=== PATIENT | female | born 1965 | race Caucasian/White ===

== ENCOUNTER 2019-05-23 13:35 | Emergency (ER) | payer MEDICARE, MEDICAID ==
[~2019-05-23] VITALS: Ht 160 cm; Wt 125.0 kg
--- NOTE | 2019-05-23 14:01 | ED Cough/URI ---
General Chief Complaint: Respiratory Problems Stated Complaint: SOB Source: patient, EMS Exam Limitations: no limitations History of Present Illness Date Seen by Provider: May 23, 2019 Time Seen by Provider: 13:40 Initial Comments Presents via EMS with complaint of a cough that started this morning. States she felt well yesterday without fever or chills. Denies history of lung disease. Also says she may have urinary tract infection as her urine is been smelling bad and she's been losing control of her urine when she coughs or sneezes. Denies any abdominal, flank or back pain Allergies and Home Medications Allergies Coded Allergies: No Known Drug Allergies (Unverified , 05/23/19) Home Medications Sulfamethoxazole/Trimethoprim 1 Each Tablet, 1 EACH PO BID Prescribed by: MARLEN VIVAS on 05/23/19 4467 Patient Home Medication List Home Medication List Reviewed: Yes Review of Systems Review of Systems Constitutional: see HPI; No fever, No malaise Respiratory: cough; No short of breath, No wheezing Cardiovascular: No chest pain, No palpitations, No syncope Gastrointestinal: No abdominal pain, No nausea, No vomiting Genitourinary: dysuria, frequency; No hesitancy; incontinence, pain Musculoskeletal: No back pain, No joint pain Skin: No change in color, No rash Past Xozyqpe-Ntdeig-Cfzzdo Hx Past Med/Social Hx: Reviewed Nursing Past Med/Soc Hx Patient Social History Recent Foreign Travel: Yes Physical Exam Vital Signs - First Documented 05/23/19 13:36 Temp 36.8 Pulse 118 Resp 20 B/P (MAP) 143/90 (107) Pulse Ox 96 O2 Delivery Room Air Capillary Refill : Height: '" Weight: lbs. oz. kg; BMI Method: General Appearance: WD/WN, no apparent distress HEENT: PERRL/EOMI, normal ENT inspection Neck: non-tender, supple Respiratory: chest non-tender, lungs clear, no respiratory distress, no accessory muscle use Cardiovascular: regular rate, rhythm, no edema Gastrointestinal: non tender, soft Extremities: non-tender, normal inspection Neurologic/Psychiatric: alert, normal mood/affect Skin: normal color, warm/dry Progress/Results/Core Measures Suspected Sepsis SIRS Temperature: Pulse: Respiratory Rate: Blood Pressure / Mean: Results/Orders Lab Results Laboratory Tests Test 05/23/19 14:22 Range/Units Urine Color STRAW Urine Clarity CLOUDY Urine pH 8.5 5-9 Urine Specific [place] 1.020 1.016-1.022 Urine Protein NEGATIVE NEGATIVE Urine Glucose (UA) NEGATIVE NEGATIVE Urine Ketones NEGATIVE NEGATIVE Urine Nitrite NEGATIVE NEGATIVE Urine Bilirubin NEGATIVE NEGATIVE Urine Urobilinogen 0.2 < = 1.0 MG/DL Urine Leukocyte Esterase 2+ H NEGATIVE Urine RBC (Auto) 2+ H NEGATIVE Urine RBC 25-50 H /HPF Urine WBC >100 H /HPF Urine Squamous Epithelial Cells 5-10 /HPF Urine Crystals NONE /LPF Urine Bacteria MODERATE H /HPF Urine Casts NONE /LPF Urine Mucus SMALL H /LPF Urine Culture Indicated YES My Orders Orders - MARLEN VIVAS DO Urinalysis (05/23/19 13:51) Ondansetron Oral Dissolve Tab (Zofran (05/23/19 14:26) Urine Culture (05/23/19 14:22) Vital Signs/I&O 05/23/19 13:36 Temp 36.8 Pulse 118 Resp 20 B/P (MAP) 143/90 (107) Pulse Ox 96 O2 Delivery Room Air Capillary Refill : Departure Impression Primary Impression: Bronchitis Additional Impression: UTI (urinary tract infection) Qualified Codes: N39.0 - Urinary tract infection, site not specified Disposition: HOME, SELF-CARE Condition: Stable Departure-Patient Inst. Patient Instructions: Acute Bronchitis, Urinary Tract Infections in Adults Scripts Sulfamethoxazole/Trimethoprim (Bactrim Ds Tablet) 1 Each Tablet 1 EACH PO BID, #14 TAB Prov: MARLEN VIVAS DO 05/23/19 MARLEN VIVAS DO May 23, 2019 14:01
[2019-05-23] MEDS ORDERED: ONDANSETRON 4 MG (ZOFRAN) ORAL DISSOLVE TAB PO STA (14:26)
[2019-05-23 14:41] LABS: CLARITY,URINE CLOUDY; COLOR,URINE STRAW; GLUCOSE, URINE (UA) NEGATIVE (NEGATIVE); KETONES,URINE NEGATIVE (NEGATIVE); NITRITE,URINE NEGATIVE (NEGATIVE); PH,URINE 8.5 (5-9); PROTEIN,URINE NEGATIVE (NEGATIVE)
[2019-05-23 14:42] LABS: BACTERIA,URINE MODERATE /HPF; BILIRUBIN,URINE NEGATIVE (NEGATIVE); LEUKOCYTE ESTERASE ,URINE 2+ (NEGATIVE); RBC,URINE 25-50 /HPF; WBC,URINE >100 /HPF
[2019-05-23] MEDS ORDERED: SULF1TAB35 PO (14:47)
--- NOTE | 2019-05-23 15:55 | NUR ---
Pt awaiting EMS arrival for transport home. Pt aware.
--- NOTE | 2019-05-23 16:30 | NUR ---
Pt assisted over to EMS cot. Once Pt moved to EMS cot the ED bed was noted to be soiled with urine. This RN asked pt as to why she did not make ED staff aware she was soiled. Pt replied, "you all know my bladder leaks." This RN instructed the pt she still has to let someone know she has soiled herself as we are unaware otherwise. This RN apologized to the pt and to EMS providers.
--- OUTSIDE RECORDS SUMMARY | 2019-05-25 12:52 | XMS REPORT | Continuity of Care Document ---
Author Organization Unknown Address Unknown Phone Unavailable Allergies Active Description Code Type Severity Reaction Onset Reported/Identified Relationship to Patient Clinical Status Yes No Known Drug Allergies [id number] Drug Allergy Unknown N/A 05/23/2019 Medications There is no data. Problems There is no data. Procedures There is no data. Results Test Result Range Complete urinalysis with reflex to cultu re - 05/23/19 14:22 Urine color determination STRAW NRG Urine clarity determination CLOUDY NR G Urine pH measurement by test strip 8.5 5-9 Specific gravity of urine by test strip 1.020 1.016-1.022 Urine protein assay by test strip, semi-quantitative NEGATIVE NEGATIVE Urine glucose detection by automated test strip NE GATIVE NEGATIVE Erythrocytes detection in urine sediment by light micr oscopy 2+ NEGATIVE Urine ketones detection by automated test strip NE GATIVE NEGATIVE Urine nitrite detection by test strip NEGATIVE NEGATIVE Urine total bilirubin detection by test strip NEGA TIVE NEGATIVE Urine urobilinogen measurement by automated test strip (mass/volume) 0.2 mg/dL < = 1.0 Urine leukocyte esterase detection by dipstick 2+ NEGATIVE Automated urine sediment erythrocyte cou nt by microscopy (number/high power field) [HPF] NRG Automated urine sediment leukocyte count by microscopy (number/high power field) > [HPF] NRG Bacteria detection in urine sediment by light microsco py MODERATE NRG Squamous epithelial cells detection in u rine sediment by light microscopy 5-10 NRG Crystals detection in urine sediment by light microsco py NONE NRG Casts detection in urine sediment by light microscopy NONE NRG Mucus detection in urine sediment by light microscopy SMALL NRG Complete urinalysis with reflex to culture YES NRG Bacterial urine culture - 05/23/19 14:22 Bacterial urine culture [id number] NRG COLONY COUNT 10,000/ML - 100,000/ML NRG FREE TEXT ENTRY 2 PRELIM RAPID ID TEST AT [facility] 05/24 11:30 NRG Encounters ACCT No. Visit Date/Time Discharge Status Pt. Type Provider Facility Loc./Unit Complaint [id number] 05/23/2019 13:45:00 020 16:45:00 DIS Emergency MARLEN VIVAS DO Via [facility] ER FS SOB
== END 2019-05-23 16:45 | disposition home or self-care (01) ==
LOC: ER FS 13:45 → MERGE 13:45 → EDBD 13:45 → ER FS 16:45
DX: J40 Bronchitis, not specified as acute or chronic (principal); N39.0 Urinary tract infection, site not specified
CPT/HCPCS: 81000; 87077; 87088; 87186; 99283

== ENCOUNTER 2020-06-05 23:06 | Emergency (ER) | payer MEDICARE, MEDICAID ==
[~2020-06-05] VITALS: Ht 157.4 cm; Wt 143.0 kg
[~2020-06-05 23:06] MED LIST: SULF1TAB35 PO
[2020-06-05] MEDS ORDERED: HYDROcodone/APAP 5 MG/325 MG (LORTAB) TAB PO ONE (23:15)
[2020-06-05 23:33] LABS: HEMOGLOBIN 13.3 G/DL (11.5-16.0); MEAN CORPUSCULAR HEMOGLOBIN 28 PG (25-34); WHITE BLOOD COUNT 21.5 10^3/uL (4.3-11.0)
[2020-06-05 23:34] LABS: BASOPHILS # (AUTO) 0.1 10^3/uL (0.0-0.1); BASOPHILS % (AUTO) 0 % (0-10); EOSINOPHILS # (AUTO) 0.3 10^3/uL (0.0-0.3); EOSINOPHILS % (AUTO) 1 % (0-10); HEMATOCRIT 43 % (35-52); LYMPHOCYTES # (AUTO) 1.7 X 10^3 (1.0-4.0); LYMPHOCYTES % (AUTO) 8 % (12-44); MEAN CORPUSCULAR HGB CONC 31 G/DL (32-36); MEAN CORPUSCULAR VOLUME 90 FL (80-99); MEAN PLATELET VOLUME 10.9 FL (7.4-10.4); MONOCYTES # (AUTO) 1.1 X 10^3 (0.0-1.0); MONOCYTES % (AUTO) 5 % (0-12); NEUTROPHILS # (AUTO) 18.1 X 10^3 (1.8-7.8); NEUTROPHILS % (AUTO) 84 % (42-75); PLATELET COUNT 265 10^3/uL (130-400)
--- NOTE | 2020-06-05 23:49 | ED General ---
General Chief Complaint: General Problems/Pain Stated Complaint: GENERAL WEAKNESS Nursing Triage Note: Patient states that she has been unable to walk for 4 years and has had a UTI for 1 year. Patient has various generalized complaints. The main complaint is that she is unable to walk and she felt like she was in bad shape because of it. Patient states that her urine is cloudy and denies taking any antibiotics for a UTI. Nursing Sepsis Screen: No Definite Risk Source of Information: Patient Exam Limitations: No Limitations History of Present Illness Date Seen by Provider: Jun 05, 2020 Time Seen by Provider: 23:15 Initial Comments Patient presents to the ED complaining of right foot pain and inability to ambulate. She states she required a lift assist to get from her back to her commode. She states that EMS accidentally hit her toe off the side of a wall. She also states that she lives by herself and has not been able to walk in for years. She complains of burning with urinary with cloudy urine. She states she has not been out of her home in the past 7 and half months due to the pandemic. Denies fever chills, nausea vomiting or sweats. Denies chest pain palpitations shortness of breath, abdominal pain. No other acute symptoms or complaints. Patient lives by herself. Timing/Duration: Other (Unable to stand without assist) Severity: Mild Modifying Factors: improves with Other Associated Systoms: Other Allergies and Home Medications Allergies Coded Allergies: No Known Drug Allergies (Unverified , 05/29/19) Home Medications Sulfamethoxazole/Trimethoprim 1 Each Tablet, 1 EACH PO BID Prescribed by: MARLEN VIVAS on 05/23/19 1447 Patient Home Medication List Home Medication List Reviewed: Yes Review of Systems Review of Systems Constitutional: weakness EENTM: no symptoms reported Respiratory: no symptoms reported Cardiovascular: no symptoms reported Genitourinary: see HPI, discharge Musculoskeletal: see HPI Skin: no symptoms reported Psychiatric/Neurological: No Symptoms Reported Hematologic/Lymphatic: No Symptoms Reported All Other Systems Reviewed Negative Unless Noted: Yes Past Xestsbv-Hpmvmt-Rdhssf Hx Past Med/Social Hx: Reviewed Nursing Past Med/Soc Hx Patient Social History Alcohol Use: Denies Use Smoking Status: Never a Smoker Recent Infectious Disease Expo: No Past Medical History Surgeries: No Respiratory: No Cardiac: No Neurological: No Genitourinary: Yes Renal Failure, UTI-Chronic Gastrointestinal: No Musculoskeletal: No Endocrine: Yes Diabetes, Non-Insulin dep HEENT: No Cancer: No Psychosocial: No Integumentary: No Physical Exam Vital Signs Vital Signs - First Documented 06/05/20 23:09 Temp 35.9 Pulse 90 Resp 20 B/P (MAP) 170/109 (129) Pulse Ox 97 O2 Delivery Room Air Capillary Refill : Less Than 3 Seconds Height, Weight, BMI Height: '" Weight: lbs. oz. kg; 57.00 BMI Method: General Appearance: No Apparent Distress, Anxious, Obese, Other (Disheveled) Eyes: Bilateral Eye Normal Inspection, Bilateral Eye PERRL, Bilateral Eye EOMI HEENT: PERRL/EOMI, Pharynx Normal, Moist Mucous Membranes Neck: Non Tender, Supple Respiratory: Chest Non Tender, Lungs Clear Cardiovascular: Regular Rate, Rhythm Gastrointestinal: Non Tender, Soft Back: Normal Inspection, No Vertebral Tenderness Extremity: Other (Right foot pain, dorsal great toe pain. No deformity/tenderness swelling or redness appreciated.) Neurologic/Psychiatric: Alert, Oriented x3 Focused Exam Sepsis Stage: Ruled Out Possible Source: Genitouriary Lactate Level 06/06/20 00:28: Lactic Acid Level 0.94 Time of Focused Exam: 23:45 Respiratory: Chest Non Tender, Lungs Clear, Normal Breath Sounds Cardiovascular: Regular Rate, Rhythm Lactic Acid Level Laboratory Tests Test 06/06/20 00:28 Lactic Acid Level 0.94 MMOL/L (0.50-2.00) Progress/Results/Core Measures Suspected Sepsis Recent Fever Within 48 Hours: No Infection Criteria Present: Suspected New Infection New/Unexplained Altered Menta: No Sepsis Screen: No Definite Risk SIRS Temperature: Pulse: 90 Respiratory Rate: 20 Laboratory Tests 06/05/20 23:12: White Blood Count 21.5H Blood Pressure 170 /109 Mean: 129 06/06/20 00:28: Lactic Acid Level 0.94 Laboratory Tests 06/05/20 23:12: Creatinine 0.70, Platelet Count 265, Total Bilirubin 0.4 Results/Orders Lab Results Laboratory Tests Test 06/05/20 23:12 06/05/20 23:43 06/06/20 00:28 Range/Units White Blood Count 21.5 H 4.3-11.0 10^3/uL Red Blood Count 4.76 4.35-5.85 10^6/uL Hemoglobin 13.3 11.5-16.0 G/DL Hematocrit 43 35-52 % Mean Corpuscular Volume 90 80-99 FL Mean Corpuscular Hemoglobin 28 25-34 PG Mean Corpuscular Hemoglobin Concent 31 L 32-36 G/DL Red Cell Distribution Width 14.8 H 10.0-14.5 % Platelet Count 265 130-400 10^3/uL Mean Platelet Volume 10.9 H 7.4-10.4 FL Immature Granulocyte % (Auto) 1 % Neutrophils (%) (Auto) 84 H 42-75 % Lymphocytes (%) (Auto) 8 L 12-44 % Monocytes (%) (Auto) 5 0-12 % Eosinophils (%) (Auto) 1 0-10 % Basophils (%) (Auto) 0 0-10 % Neutrophils # (Auto) 18.1 H 1.8-7.8 X 10^3 Lymphocytes # (Auto) 1.7 1.0-4.0 X 10^3 Monocytes # (Auto) 1.1 H 0.0-1.0 X 10^3 Eosinophils # (Auto) 0.3 0.0-0.3 10^3/uL Basophils # (Auto) 0.1 0.0-0.1 10^3/uL Immature Granulocyte # (Auto) 0.2 H 0.0-0.1 10^3/uL Neutrophils % (Manual) 81 % Lymphocytes % (Manual) 15 % Monocytes % (Manual) 4 % Sodium Level 138 135-145 MMOL/L Potassium Level 4.5 3.6-5.0 MMOL/L Chloride Level 102 98-107 MMOL/L Carbon Dioxide Level 26 21-32 MMOL/L Anion Gap 10 5-14 MMOL/L Blood Urea Nitrogen 21 H 7-18 MG/DL Creatinine 0.70 0.60-1.30 MG/DL Estimat Glomerular Filtration Rate > 60 BUN/Creatinine Ratio 30 Glucose Level 164 H 70-105 MG/DL Calcium Level 10.2 H 8.5-10.1 MG/DL Corrected Calcium 10.2 H 8.5-10.1 MG/DL Total Bilirubin 0.4 0.1-1.0 MG/DL Aspartate Amino Transf (AST/SGOT) 11 5-34 U/L Alanine Aminotransferase (ALT/SGPT) 9 0-55 U/L Alkaline Phosphatase 68 40-136 U/L Total Protein 7.3 6.4-8.2 GM/DL Albumin 4.0 3.2-4.5 GM/DL Urine Color YELLOW Urine Clarity CLOUDY Urine pH 6.0 5-9 Urine Specific [place] >=1.030 1.016-1.022 Urine Protein NEGATIVE NEGATIVE Urine Glucose (UA) NEGATIVE NEGATIVE Urine Ketones TRACE H NEGATIVE Urine Nitrite NEGATIVE NEGATIVE Urine Bilirubin 1+ H NEGATIVE Urine Urobilinogen 0.2 < = 1.0 MG/DL Urine Leukocyte Esterase TRACE H NEGATIVE Urine RBC (Auto) NEGATIVE NEGATIVE Urine RBC NONE /HPF Urine WBC 10-25 H /HPF Urine Squamous Epithelial Cells 10-25 H /HPF Urine Crystals NONE /LPF Urine Bacteria TRACE /HPF Urine Casts PRESENT /LPF Urine Hyaline Casts 2-5 H /LPF Urine Granular Casts 2-5 H /LPF Urine Coarse Granular Casts RARE H /LPF Urine Mucus LARGE H /LPF Urine Culture Indicated YES Lactic Acid Level 0.94 0.50-2.00 MMOL/L My Orders Orders - ASHLEE GARCES DO Cbc With Automated Diff (06/05/20 23:13) Comprehensive Metabolic Panel (06/05/20 23:13) Ua Culture If Indicated (06/05/20 23:13) Foot 2 View Right (06/05/20 23:13) Hydrocodone/Apap 5/325 Tablet (Lortab 5 (06/05/20 23:15) Manual Differential (06/05/20 23:12) Straight Cath For Spec.-Adult (06/05/20 23:47) Urine Culture (06/05/20 23:43) Ceftriaxone For Iv Use (Rocephin For I (06/06/20 00:15) Ns Iv 1000 Ml (Sodium Chloride 0.9%) (06/06/20 00:15) Blood Culture (06/06/20 00:18) Lactic Acid Analyzer (06/06/20 00:18) Blood Culture (06/06/20 00:47) Ed Iv/Invasive Line Start (06/06/20 00:49) Medications Given in ED Current Medications Medications Dose Ordered Sig/Ivan Route Start Time Stop Time Status Last Admin Dose Admin Acetaminophen/ Hydrocodone Bitart 1 ea ONCE ONCE PO 06/05/20 23:15 06/05/20 23:16 DC 06/05/20 23:34 1 EA Ceftriaxone Sodium 1000 mg/ Sterile Water 10 ml @ 200 mls/hr ONCE ONCE IV 06/06/20 00:15 06/06/20 00:17 DC 06/06/20 00:51 200 MLS/HR Vital Signs/I&O 06/05/20 23:09 Temp 35.9 Pulse 90 Resp 20 B/P (MAP) 170/109 (129) Pulse Ox 97 O2 Delivery Room Air Capillary Refill : Less Than 3 Seconds Blood Pressure Mean: 129 Departure Communication (Admissions) Right foot x-ray: No fracture. Dysuria generalized weakness and deconditioning. Patient was 21,000 white count and urinary tract symptoms. Lactic acid normal. Vital signs stable. IV fluids and antibiotics given. . Patient with clinical improvement. Will discharge home with instructions to follow-up with PCP. Return precautions reviewed. Patient verbalizes understanding agreement discharge instructions prior to departure. Impression Primary Impression: Urinary tract infection Additional Impressions: Generalized weakness Physical deconditioning Disposition: HOME, SELF-CARE Condition: Stable Departure-Patient Inst. Decision time for Depature: 01:00 Referrals: SELFCONSTANCE MD (PCP/Family) Primary Care Physician Patient Instructions: Weakness ED, Urinary Tract Infection, Child (DC) Add. Discharge Instructions: Please increase fluids and take antibiotics as directed. Follow-up with your PCP in 3 to 5 days for reevaluation. Return to the ED if new or worsening symptoms. All discharge instructions reviewed with patient and/or family. Voiced understanding. Scripts Cefdinir (Cefdinir) 125 Mg/5 Ml Susp.recon 10 ML PO BID, #60 ML 0 Refills Prov: ASHLEE GARCES DO 06/06/20 ASHLEE GARCES DO Jun 05, 2020 23:48
[2020-06-05 23:54] LABS: ALANINE AMINOTRANSFERASE 9 U/L (0-55); ALKALINE PHOSPHATASE 68 U/L (40-136); BILIRUBIN,TOTAL 0.4 MG/DL (0.1-1.0); BUN/CREATININE RATIO 30; CALCIUM 10.2 MG/DL (8.5-10.1); CARBON DIOXIDE 26 MMOL/L (21-32); CHLORIDE 102 MMOL/L (98-107); GFR ESTIMATED > 60; GLUCOSE 164 MG/DL (70-105); POTASSIUM 4.5 MMOL/L (3.6-5.0); SODIUM 138 MMOL/L (135-145); TOTAL PROTEIN 7.3 GM/DL (6.4-8.2)
[2020-06-05 23:55] LABS: BACTERIA,URINE TRACE /HPF; BILIRUBIN,URINE 1+ (NEGATIVE); CLARITY,URINE CLOUDY; COLOR,URINE YELLOW; GLUCOSE, URINE (UA) NEGATIVE (NEGATIVE); KETONES,URINE TRACE (NEGATIVE); LEUKOCYTE ESTERASE ,URINE TRACE (NEGATIVE); NITRITE,URINE NEGATIVE (NEGATIVE); PROTEIN,URINE NEGATIVE (NEGATIVE)
[2020-06-06 00:02] LABS: LYMPHOCYTES % (MANUAL) 15 %; MONOCYTES % (MANUAL) 4 %; NEUTROPHILS % (MANUAL) 81 %
[2020-06-06] MEDS ORDERED: NS IV 1000 ML 1,000 ML IV SCH (00:15)
[2020-06-06] MEDS ORDERED: cefTRIAXone FOR IV USE 1,000 MG in WATER (STERILE) FOR INJECTION 10 ML IV ONE (00:15)
[2020-06-06] MEDS ORDERED: CEFD125S3 PO ×2 (01:46→02:10)
[2020-06-06 02:05] VITALS: BP 142/96
--- NOTE | 2020-06-06 09:24 | Diagnostic Imaging Report ---
CLINICAL INDICATIONS: Patient hurt right foot and toes while being transferred to a wheelchair. EXAM: X-ray of the right foot, AP and lateral views. COMPARISON: None. FINDINGS: There is diffuse osteopenia which limits evaluation for fine bony detail. There is no definite acute fracture or dislocation. There are small degenerative spurs involving the 1st MTP joint and IP joints. There are moderately hypertrophic calcaneal spurs at the plantar and Achilles attachment. There is a chronic calcification seen adjacent to the navicular bone dorsally. Soft tissue swelling involving the feet and right lower extremity. IMPRESSION: 1. There is diffuse osteopenia which limits evaluation for fine bony detail. There is no definite fracture or dislocation seen. Given the amount of osteopenia, if there is continued concern for fracture, followup x-ray of the right foot in 7-10 days is suggested for further evaluation. 2: Degenerative disease of the right foot. Dictated by: Dictated on workstation # [id number]
== END 2020-06-06 02:11 | disposition home or self-care (01) ==
LOC: EDUNIT# 23:06 → ER FS 23:10
DX: N39.0 Urinary tract infection, site not specified (principal); R53.1 Weakness; R53.81 Other malaise; I10 Essential (primary) hypertension; E66.9 Obesity, unspecified; E11.9 Type 2 diabetes mellitus without complications; Z68.43 Body mass index [BMI] 50.0-59.9, adult
CPT/HCPCS: 36415; 51701; 51702; 73620; 80053; 81000; 83605; 85007; 85027; 87040; 87088; 96374

== ENCOUNTER 2020-06-06 14:37 | Emergency (ER) | payer MEDICARE, MEDICAID ==
[~2020-06-06] VITALS: Ht 157.4 cm; Wt 143.0 kg
[~2020-06-06 14:37] MED LIST changes: +CEFD125S3 PO
[2020-06-06] MEDS ORDERED: NS IV 1000 ML 1,000 ML IV SCH (15:00)
--- NOTE | 2020-06-06 15:39 | Diagnostic Imaging Report ---
PROCEDURE: CT abdomen and pelvis without contrast. TECHNIQUE: Multiple contiguous axial images were obtained through the abdomen and pelvis without the use of intravenous contrast. Auto Exposure Controls were utilized during the CT exam to meet ALARA standards for radiation dose reduction. INDICATION: Left flank pain. COMPARISON STUDY: CT scan from 2009. FINDINGS: Mild hepatic steatosis is present. The gallbladder is absent. The spleen, pancreas and adrenal glands appear normal. There is moderate motion artifact. There is marked left hydronephrosis with severe thinning of the cortex. 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 Right kidney appears unremarkable. Urinary bladder is nearly decompressed. The uterus is absent. Some colonic diverticuli are present. No inflammatory change is present. A moderate amount of stool is present in the colon. There is no ascites, free air or abnormal adenopathy. No arterial sclerosis is present. Scoliosis and degenerative change is present within the spine. Anterolisthesis is present at L5 on S1. IMPRESSION: 1. Exam is somewhat limited due to patient motion. 2. There has been development of chronic left hydronephrosis due to a ureteropelvic junction stricture. The renal cortex is markedly thinned. The right kidney appears unremarkable. 3. Diverticulosis is present. 4. There are fairly severe degenerative changes of the lumbar spine. Dictated by: Dictated on workstation # [id number]
[2020-06-06 15:40] LABS: BASOPHILS # (AUTO) 0.1 10^3/uL (0.0-0.1); BASOPHILS % (AUTO) 0 % (0-10); EOSINOPHILS # (AUTO) 0.1 10^3/uL (0.0-0.3); EOSINOPHILS % (AUTO) 0 % (0-10); HEMATOCRIT 42 % (35-52); HEMOGLOBIN 13.4 G/DL (11.5-16.0); LYMPHOCYTES % (AUTO) 5 % (12-44); MEAN CORPUSCULAR HEMOGLOBIN 28 PG (25-34); MEAN CORPUSCULAR HGB CONC 32 G/DL (32-36); MEAN CORPUSCULAR VOLUME 87 FL (80-99); MEAN PLATELET VOLUME 10.8 FL (7.4-10.4); MONOCYTES % (AUTO) 5 % (0-12); NEUTROPHILS # (AUTO) 17.5 X 10^3 (1.8-7.8); NEUTROPHILS % (AUTO) 88 % (42-75); PLATELET COUNT 247 10^3/uL (130-400); WHITE BLOOD COUNT 19.8 10^3/uL (4.3-11.0)
--- NOTE | 2020-06-06 15:45 | ED General ---
General Chief Complaint: General Problems/Pain Stated Complaint: WEAKNESS Nursing Triage Note: Patient presents per [facility] reporting 911 call for being too weak to get up. Pt was in ER yesterday for UTI. Pt reported being nearly immobile except transfers for 4 yrs. Pt states she has not started her antibiotic yet as "I cannot get in my house." Nursing Sepsis Screen: No Definite Risk Source of Information: Patient, EMS Exam Limitations: No Limitations History of Present Illness Date Seen by Provider: Jun 06, 2020 Time Seen by Provider: 14:40 Initial Comments 54-year-old female presents via EMS with complaint of weakness and unable to get up. Seen in this ER last night for similar symptoms, mainly constitutional and chronic in nature. Diagnosed with UTI sent home on appropriate antibiotics. Daily patient lives with her son who assist with her care. She states that for the past 4 years she has had trouble getting up and moving (not due to any injury or neurologic deficit). However, she states today she was unable to get inside her house (after being seen in the ER last night she never made it back indoors). She has no handicap access to her home and is otherwise unable to walk or go up any steps. She does not have any home health care. Her concern today is that she may have a left kidney problem and that her doctor told her her left kidney was dying..... many years ago. She denies any chest pain or shortness of air, denies fever chills or cough. Denies vomiting or diarrhea. Also did not fill antibiotic that she was given last night for her UTI. Allergies and Home Medications Allergies Coded Allergies: No Known Drug Allergies (Unverified , 05/29/19) Home Medications Cefdinir 125 Mg/5 Ml Susp.recon, 10 ML PO BID Prescribed by: ASHLEE NESS on 06/06/20 0210 Patient Home Medication List Home Medication List Reviewed: Yes Review of Systems Review of Systems Constitutional: No fever; malaise, weakness EENTM: no symptoms reported Respiratory: No cough, No short of breath Cardiovascular: No chest pain, No syncope Gastrointestinal: abdominal pain (mainly left flank); No constipation, No diarrhea, No loss of appetite, No nausea, No vomiting Genitourinary: No dysuria, No frequency, No hematuria Musculoskeletal: No back pain, No joint pain Skin: No change in color, No lesions, No lumps Past Miofdrw-Cwyuup-Pellqk Hx Patient Social History Recent Infectious Disease Expo: No Past Medical History Surgeries: No Respiratory: No Cardiac: No Neurological: No Genitourinary: Yes Renal Failure, UTI-Chronic Gastrointestinal: No Musculoskeletal: No Endocrine: Yes Diabetes, Non-Insulin dep HEENT: No Cancer: No Psychosocial: No Integumentary: No Physical Exam Vital Signs Vital Signs - First Documented 06/06/20 14:37 Temp 37.2 Pulse 108 Resp 20 B/P (MAP) 144/81 (102) Pulse Ox 95 O2 Delivery Room Air Capillary Refill : Less Than 3 Seconds Height, Weight, BMI Height: '" Weight: lbs. oz. kg; 57.00 BMI Method: General Appearance: No Apparent Distress, Obese Eyes: Bilateral Eye Normal Inspection, Bilateral Eye PERRL, Bilateral Eye EOMI HEENT: PERRL/EOMI, Other (chronic dental caries) Neck: Normal Inspection, Non Tender Respiratory: Chest Non Tender, Lungs Clear Cardiovascular: Regular Rate, Rhythm, No JVD Gastrointestinal: No Organomegaly, Soft; No Distended, No Guarding, No Rebound; Tenderness (mild epigastric and LUQ) Back: Normal Inspection, No CVA Tenderness, No Vertebral Tenderness Extremity: Normal Capillary Refill, Non Tender, Pedal Edema, Swelling (chronic ) Neurologic/Psychiatric: Alert, Oriented x3, No Motor/Sensory Deficits, Normal Mood/Affect Skin: Normal Color, Warm/Dry Focused Exam Lactate Level 06/06/20 15:20: Lactic Acid Level 1.28 Lactic Acid Level Laboratory Tests Test 06/06/20 15:20 Lactic Acid Level 1.28 MMOL/L (0.50-2.00) Progress/Results/Core Measures Suspected Sepsis Recent Fever Within 48 Hours: No Infection Criteria Present: Documented Infection New/Unexplained Altered Menta: No Sepsis Screen: No Definite Risk SIRS Temperature: Pulse: 108 Respiratory Rate: 20 Laboratory Tests 06/06/20 15:20: White Blood Count 19.8H Blood Pressure 144 /81 Mean: 102 06/06/20 15:20: Lactic Acid Level 1.28 Laboratory Tests 06/06/20 15:20: Creatinine 0.75, Platelet Count 247, Total Bilirubin 0.8 Results/Orders Lab Results Laboratory Tests Test 06/06/20 15:20 Range/Units White Blood Count 19.8 H 4.3-11.0 10^3/uL Red Blood Count 4.76 4.35-5.85 10^6/uL Hemoglobin 13.4 11.5-16.0 G/DL Hematocrit 42 35-52 % Mean Corpuscular Volume 87 80-99 FL Mean Corpuscular Hemoglobin 28 25-34 PG Mean Corpuscular Hemoglobin Concent 32 32-36 G/DL Red Cell Distribution Width 14.8 H 10.0-14.5 % Platelet Count 247 130-400 10^3/uL Mean Platelet Volume 10.8 H 7.4-10.4 FL Immature Granulocyte % (Auto) 1 % Neutrophils (%) (Auto) 88 H 42-75 % Lymphocytes (%) (Auto) 5 L 12-44 % Monocytes (%) (Auto) 5 0-12 % Eosinophils (%) (Auto) 0 0-10 % Basophils (%) (Auto) 0 0-10 % Neutrophils # (Auto) 17.5 H 1.8-7.8 X 10^3 Lymphocytes # (Auto) 1.0 1.0-4.0 X 10^3 Monocytes # (Auto) 1.0 0.0-1.0 X 10^3 Eosinophils # (Auto) 0.1 0.0-0.3 10^3/uL Basophils # (Auto) 0.1 0.0-0.1 10^3/uL Immature Granulocyte # (Auto) 0.2 H 0.0-0.1 10^3/uL Sodium Level 138 135-145 MMOL/L Potassium Level 4.3 3.6-5.0 MMOL/L Chloride Level 100 98-107 MMOL/L Carbon Dioxide Level 25 21-32 MMOL/L Anion Gap 13 5-14 MMOL/L Blood Urea Nitrogen 23 H 7-18 MG/DL Creatinine 0.75 0.60-1.30 MG/DL Estimat Glomerular Filtration Rate > 60 BUN/Creatinine Ratio 31 Glucose Level 153 H 70-105 MG/DL Lactic Acid Level 1.28 0.50-2.00 MMOL/L Calcium Level 10.2 H 8.5-10.1 MG/DL Corrected Calcium 10.0 8.5-10.1 MG/DL Total Bilirubin 0.8 0.1-1.0 MG/DL Aspartate Amino Transf (AST/SGOT) 18 5-34 U/L Alanine Aminotransferase (ALT/SGPT) 11 0-55 U/L Alkaline Phosphatase 73 40-136 U/L Troponin I < 0.30 <0.30 NG/ML Total Protein 7.3 6.4-8.2 GM/DL Albumin 4.2 3.2-4.5 GM/DL My Orders Orders - MARLEN VIVAS DO Ed Iv/Invasive Line Start (06/06/20 14:48) Cbc With Automated Diff (06/06/20 14:48) Comprehensive Metabolic Panel (06/06/20 14:48) Troponin I Fs (06/06/20 14:48) Lactic Acid Analyzer (06/06/20 14:48) Urinalysis (06/06/20 14:48) Ct Abdomen/Pelvis Wo (06/06/20 14:48) Ns Iv 1000 Ml (Sodium Chloride 0.9%) (06/06/20 15:00) Vital Signs/I&O 06/06/20 06/06/20 14:37 17:53 Temp 37.2 36.9 Pulse 108 112 Resp 20 20 B/P (MAP) 144/81 (102) 167/73 (102) Pulse Ox 95 95 O2 Delivery Room Air Room Air Capillary Refill : Less Than 3 Seconds Blood Pressure Mean: 102 Progress Note : Progress Note Patient with chronic physical deconditioning secondary to years of not getting up and taking care of herself. Patient without any neurologic deficit, just overt generalized weakness and moderate obesity. Patient does not want to go to assisted living or usp care. Unable to get inside her house herself as she is unable to stand up and walk due to her current self-induced status. EMS utilized to get her home and in the door of her house. Adult Protective Services was called to assist with evaluation of the home and to help with getting patient placed in an appropriate facility. Her son who was present was not much help and did not himself seem competent to make decisions for her. An older adult daughter was called by the nurse who lives out of town and seemed that she might be able to help when social sciences research scientist were available on a weekday to assist with getting her the proper care. She currently is living with her sister. The living situation was described by EMS as being very poor. Diagnostic Imaging Diagonstic Imaging: CT Plain Films/CT/US/NM/MRI: abdomen Comments COMPARISON STUDY: CT scan from 2008. FINDINGS: Mild hepatic steatosis is present. The gallbladder is absent. The spleen, pancreas and adrenal glands appear normal. There is moderate motion artifact. There is marked left hydronephrosis with severe thinning of the cortex. 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 Right kidney appears unremarkable. Urinary bladder is nearly decompressed. The uterus is absent. Some colonic diverticuli are present. No inflammatory change is present. A moderate amount of stool is present in the colon. There is no ascites, free air or abnormal adenopathy. No arterial sclerosis is present. Scoliosis and degenerative change is present within the spine. Anterolisthesis is present at L5 on S1. IMPRESSION: 1. Exam is somewhat limited due to patient motion. 2. There has been development of chronic left hydronephrosis due to a ureteropelvic junction stricture. The renal cortex is markedly thinned. The right kidney appears unremarkable. 3. Diverticulosis is present. 4. There are fairly severe degenerative changes of the lumbar spine. Dictated on workstation # [id number] Dict: 06/06/20 1526 Trans: 06/06/20 1539 [facility] [id number] Interpreted by: ELYSE THAKKAR MD Electronically signed by: Departure Impression Primary Impression: Generalized weakness Additional Impressions: Physical deconditioning Chronic kidney disease Qualified Codes: N18.9 - Chronic kidney disease, unspecified Disposition: 01 HOME, SELF-CARE Condition: Stable Departure-Patient Inst. Decision time for Depature: 16:12 Referrals: CONSTANCE TRUJILLO MD (PCP/Family) Primary Care Physician Patient Instructions: Generalized Weakness (DC), Chronic Kidney Disease (DC) Add. Discharge Instructions: follow up with your Primary Doctor this week. Fill your prescription given to you last night by Dr Ness and start taking it today. All discharge instructions reviewed with patient and/or family. Voiced understanding. MARLEN VIVAS DO Jun 06, 2020 15:45
[2020-06-06 15:57] LABS: ALANINE AMINOTRANSFERASE 11 U/L (0-55); ALBUMIN 4.2 GM/DL (3.2-4.5); ALKALINE PHOSPHATASE 73 U/L (40-136); BILIRUBIN,TOTAL 0.8 MG/DL (0.1-1.0); BUN/CREATININE RATIO 31; CALCIUM 10.2 MG/DL (8.5-10.1); CARBON DIOXIDE 25 MMOL/L (21-32); CHLORIDE 100 MMOL/L (98-107); CREATININE SERUM 0.75 MG/DL (0.60-1.30); GFR ESTIMATED > 60; GLUCOSE 153 MG/DL (70-105); POTASSIUM 4.3 MMOL/L (3.6-5.0); SODIUM 138 MMOL/L (135-145); TOTAL PROTEIN 7.3 GM/DL (6.4-8.2)
[2020-06-06 17:53] VITALS: BP 167/73
== END 2020-06-06 17:53 | disposition home or self-care (01) ==
LOC: EDUNIT# 14:39 → ER FS 14:40
DX: R53.1 Weakness (principal); R53.81 Other malaise; I12.9 Hypertensive chronic kidney disease with stage 1 through stage 4 chronic kidney disease, or unspecified chronic kidney disease; E11.22 Type 2 diabetes mellitus with diabetic chronic kidney disease; N18.9 Chronic kidney disease, unspecified; E66.9 Obesity, unspecified; Z68.43 Body mass index [BMI] 50.0-59.9, adult
CPT/HCPCS: 36415; 74176; 80053; 83605; 84484; 85025

== ENCOUNTER → 2020-08-21 | Outpatient (CLI) | payer MEDICARE, MEDICAID ==
[2020-08-21 17:20] LABS: BILIRUBIN,URINE NEGATIVE (NEGATIVE); CLARITY,URINE CLEAR; COLOR,URINE YELLOW; GLUCOSE, URINE (UA) NEGATIVE (NEGATIVE); KETONES,URINE NEGATIVE (NEGATIVE); LEUKOCYTE ESTERASE ,URINE NEGATIVE (NEGATIVE); NITRITE,URINE NEGATIVE (NEGATIVE); PH,URINE 6.5 (5-9); PROTEIN,URINE NEGATIVE (NEGATIVE)
[2020-08-21 17:21] LABS: BACTERIA,URINE NEGATIVE /HPF
== END ==
PROVIDERS: ATTEND Family Medicine
DX: N19 Unspecified kidney failure (principal)
CPT/HCPCS: 81000

== ENCOUNTER → 2021-01-31 | Outpatient (CLI) | payer OTHER, MEDICAID ==
[~2021-01-31] MED LIST changes: -SULF1TAB35 PO; +SULF1TAB38 PO
[2021-01-31 12:28] LABS: BASOPHILS # (AUTO) 0.1 10^3/uL (0.0-0.1); BASOPHILS % (AUTO) 0 % (0-10); EOSINOPHILS # (AUTO) 0.1 10^3/uL (0.0-0.3); EOSINOPHILS % (AUTO) 0 % (0-10); HEMATOCRIT 38 % (35-52); HEMOGLOBIN 11.7 g/dL (11.5-16.0); LYMPHOCYTES # (AUTO) 0.7 X 10^3 (1.0-4.0); LYMPHOCYTES % (AUTO) 4 % (12-44); MEAN CORPUSCULAR HEMOGLOBIN 29 pg (25-34); MEAN CORPUSCULAR HGB CONC 29 g/dL (32-36); MEAN CORPUSCULAR VOLUME 94 fL (80-99); MEAN PLATELET VOLUME 11.9 fL (9.0-12.2); MONOCYTES # (AUTO) 1.4 X 10^3 (0.0-1.0); MONOCYTES % (AUTO) 7 % (0-12); NEUTROPHILS # (AUTO) 16.5 X 10^3 (1.8-7.8); NEUTROPHILS % (AUTO) 87 % (42-75); PLATELET COUNT 145 10^3/uL (130-400); WHITE BLOOD COUNT 19.1 10^3/uL (4.3-11.0)
[2021-01-31 12:38] LABS: LYMPHOCYTES % (MANUAL) 1 %; MONOCYTES % (MANUAL) 3 %; NEUTROPHILS % (MANUAL) 96 %
[2021-01-31 12:39] LABS: POLYCHROMASIA SLIGHT; TOXIC GRANULATION/VACUOLAZATIO 4+
[2021-01-31 12:44] LABS: ALBUMIN 3.2 GM/DL (3.2-4.5); BILIRUBIN,TOTAL 0.3 MG/DL (0.1-1.0); CALCIUM 9.1 MG/DL (8.5-10.1); CREATININE SERUM 1.18 MG/DL (0.60-1.30); POTASSIUM 4.6 MMOL/L (3.6-5.0); TOTAL PROTEIN 5.8 GM/DL (6.4-8.2)
== END ==
LOC: IHC 12:13
PROVIDERS: ATTEND Nurse Practitioner Adult Health
DX: R50.9 Fever, unspecified (principal)
CPT/HCPCS: 80053; 85007; 85027

== ENCOUNTER → 2021-03-29 | Outpatient (CLI) | payer OTHER, MEDICAID ==
[2021-03-29 18:12] LABS: BILIRUBIN,URINE NEGATIVE (NEGATIVE); CLARITY,URINE TURBID; COLOR,URINE YELLOW; GLUCOSE, URINE (UA) NEGATIVE (NEGATIVE); KETONES,URINE NEGATIVE (NEGATIVE); LEUKOCYTE ESTERASE ,URINE 2+ (NEGATIVE); NITRITE,URINE NEGATIVE (NEGATIVE); PROTEIN,URINE NEGATIVE (NEGATIVE)
[2021-03-29 18:40] LABS: BACTERIA,URINE LARGE /HPF; WBC,URINE TNTC /HPF
[2021-03-29 18:41] LABS: URINE OTHER CULT. ORDERED BY DR /HPF
== END ==
PROVIDERS: ATTEND Family Medicine
DX: R30.0 Dysuria (principal)
CPT/HCPCS: 81000; 87088